=== PATIENT | male | born 1950 | race Two or more races ===

== ENCOUNTER 2018-08-23 22:38 | Inpatient (IN) | payer MEDICARE, OTHER ==
[~2018-08-23] VITALS: Ht 175.3 cm; Wt 817.4 kg
[~2018-08-23 22:38] MED LIST: CARB200T PO; HYDR12.54 PO; LEVE1000 PO; LEVE750T4 PO; LISI-604 PO; PRAS10TA6 PO; ZONI100C34 PO
[2018-08-23] MEDS ORDERED: FAMOTIDINE 20MG/2ML VIAL IV STA (23:15)
[2018-08-23] MEDS ORDERED: ONDANSETRON HCL 4MG/2ML INJ IV STA (23:15)
[2018-08-23 23:39] LABS: BASOPHILS % 0.5 % (0.0-2.0); EOSINOPHILS % 3.6 % (0.0-5.0); HEMATOCRIT. 44.3 % (42.0-52.0); HEMOGLOBIN. 14.7 g/dL (14.0-18.0); LYMPHOCYTES % 14.8 % (20.0-50.0); MEAN CORPUSCULAR HEMOGLOBIN 31.9 pg (28.0-32.0); MEAN CORPUSCULAR VOLUME 96.4 fL (80.0-94.0); MEAN PLATELET VOLUME 8.4 fl (7.4-10.4); MONOCYTES % 10.8 % (2.0-8.0); NEUTROPHILS % 70.3 % (40.0-76.0); PLATELET 163 x1000/uL (130-400); RED CELL DISTRIBUTION WIDTH 13.5 % (11.6-14.6)
[2018-08-23 23:46] LABS: CHLORIDE 107 mEq/L (98-107)
[2018-08-23 23:55] LABS: CARBAMAZEPINE 11.4 ug/mL (4-12)
[2018-08-24 01:00] LABS: CLARITY URINE CLEAR (CLEAR); COLOR URINE YELLOW (YELLOW); KETONES URINE NEGATIVE (NEGATIVE); LEUKOCYTE ESTERASE URINE NEGATIVE (NEGATIVE); NITRITE URINE NEGATIVE (NEGATIVE); OCCULT BLOOD URINE NEGATIVE (NEGATIVE); PH URINE 6.5 (4.5-8.0); PROTEIN URINE NEGATIVE (NEGATIVE); SPECIFIC GRAVITY URINE 1.015 (1.005-1.030)
[2018-08-24] MEDS ORDERED: DEXT 5%/0.45% NACL KCL 20MEQ/L 1,000 ML IV ONE (01:23)
[2018-08-24] MEDS ORDERED: MORPHINE SULFATE 4 MG/ML CPJ (NOT FOR IM USE) IV ONE (01:30)
[2018-08-24] MEDS ORDERED: PIPERACILLIN/TAZ 3.375G PREMIX 50 ML IV ONE (02:15)
[2018-08-24 08:44] VITALS: BP 140/84
[2018-08-24] MEDS ORDERED: ONDANSETRON HCL 4MG/2ML INJ IV PRN (10:00)
[2018-08-24] MEDS ORDERED: ACETAMINOPHEN 325MG TABLET PO PRN (10:00)
[2018-08-24 10:30] VITALS: BP 140/84
[2018-08-24 12:00] VITALS: BP 119/54
[2018-08-24] MEDS ORDERED: ZONI100C34 MT ×3 (13:28→13:31)
[2018-08-24] MEDS ORDERED: ASPI-986 MT (13:35)
[2018-08-24] MEDS ORDERED: METO25TA6 MT (13:35)
[2018-08-24] MEDS ORDERED: RAMI10CA19 MT (13:35)
[2018-08-24] MEDS ORDERED: ATOR20TA65 MT (13:35)
[2018-08-24] MEDS: ENOXAPARIN 40MG/0.4ML SYR SUBCUT SCH (13:48)
[2018-08-24] MEDS: PIPERACILLIN/TAZ 3.375G PREMIX 50 ML IV SCH ×2 (13:48→18:38)
[2018-08-24] MEDS: SODIUM CHLORIDE 0.9% 1,000 ML IV SCH (13:54)
[2018-08-24 16:00] VITALS: BP 118/67
[2018-08-24] MEDS ORDERED: IPRATROPIUM/ALBUTEROL 0.5-3(2.5)MG/3ML NEB HHN SCH ×2 (16:00)
[2018-08-24] MEDS ORDERED: LEVETIRACETAM 1500 MG PO SCH ×2 (17:00)
[2018-08-24] MEDS ORDERED: RAMIPRIL MT SCH (17:00)
[2018-08-24] MEDS ORDERED: MEDICATION NOT ON FORMULARY EA (Metoprolol Tartrate 1 TAB) MT SCH (17:00)
[2018-08-24 20:00] VITALS: BP 119/72
[2018-08-24] MEDS: LEVETIRACETAM 500MG TABLET PO SCH (20:50)
[2018-08-24] MEDS: METOPROLOL TARTRATE 50MG TABLET PO SCH (20:51)
[2018-08-24] MEDS: LISINOPRIL 40MG TABLET PO SCH (20:52)
[2018-08-24] MEDS ORDERED: ATORVASTATIN CALCIUM 20MG TABLET PO SCH (21:00)
[2018-08-24] MEDS ORDERED: CARBAMAZEPINE 200MG TABLET PO SCH (21:00)
[2018-08-24] MEDS ORDERED: ZONISAMIDE 100MG CAPSULE PO SCH (21:00)
[2018-08-24] MEDS ORDERED: ZONISAMIDE MT SCH (21:00)
[2018-08-25] VITALS: BP 121/70
[2018-08-25] MEDS: SODIUM CHLORIDE 0.9% 1,000 ML IV SCH ×2 (00:01→12:32)
[2018-08-25] MEDS: PIPERACILLIN/TAZ 3.375G PREMIX 50 ML IV SCH ×3 (00:01→12:31)
[2018-08-25 04:00] VITALS: BP 96/60
[2018-08-25 06:30] LABS: HEMATOCRIT. 40.8 % (42.0-52.0); HEMOGLOBIN. 13.3 g/dL (14.0-18.0); MEAN CORPUSCULAR HEMOGLOBIN 31.3 pg (28.0-32.0); MEAN CORPUSCULAR VOLUME 95.8 fL (80.0-94.0); MEAN PLATELET VOLUME 8.8 fl (7.4-10.4); PLATELET 149 x1000/uL (130-400); RED BLOOD CELL COUNT 4.26 mill/uL (4.7-6.1); RED CELL DISTRIBUTION WIDTH 13.6 % (11.6-14.6)
[2018-08-25 07:17] LABS: CHLORIDE 110 mEq/L (98-107)
[2018-08-25 08:00] VITALS: BP 126/79
[2018-08-25] MEDS: LEVETIRACETAM 500MG TABLET PO SCH (08:22)
[2018-08-25] MEDS: LISINOPRIL 40MG TABLET PO SCH (08:23)
[2018-08-25] MEDS: METOPROLOL TARTRATE 50MG TABLET PO SCH (08:23)
[2018-08-25] MEDS ORDERED: ZONISAMIDE MT SCH (09:00)
[2018-08-25] MEDS ORDERED: ASPIRIN 81MG TABLET PO SCH (09:00)
[2018-08-25] MEDS ORDERED: CARBAMAZEPINE 200MG TABLET PO SCH ×2 (09:00→12:00)
[2018-08-25] MEDS ORDERED: ZONISAMIDE 100MG CAPSULE PO SCH (09:00)
[2018-08-25] MEDS ORDERED: MEDICATION NOT ON FORMULARY EA (Aspirin 1 TAB) MT SCH (09:00)
[2018-08-25] MEDS: ENOXAPARIN 40MG/0.4ML SYR SUBCUT SCH (10:30)
[2018-08-25 10:31] LABS: PLATELET ESTIMATE NORMAL
[2018-08-25 12:00] VITALS: BP 110/68
[2018-08-25 16:00] VITALS: BP 124/65
[2018-08-25 17:55] VITALS: BP 124/65
== END 2018-08-25 18:30 | disposition home or self-care (01) | DRG 392 ==
LOC: ER 22:38 → 5WST 08-24 02:05 → EDBEDREQTM 08-24 02:22 → EDBEDREQ 08-24 02:22 → ENRESERV 08-24 07:11
PROVIDERS: ADMIT Internal Medicine; ATTEND Internal Medicine
DX: K52.9 Noninfective gastroenteritis and colitis, unspecified (principal); K56.699 Other intestinal obstruction unspecified as to partial versus complete obstruction; K57.30 Diverticulosis of large intestine without perforation or abscess without bleeding; G40.909 Epilepsy, unspecified, not intractable, without status epilepticus; I10 Essential (primary) hypertension; N28.1 Cyst of kidney, acquired; Z90.49 Acquired absence of other specified parts of digestive tract; Z79.899 Other long term (current) drug therapy
CPT/HCPCS: 36415; 71045; 74018; 74176; 80048; 80156; 83605; 83880; 84484; 87015; 87045; 87427; 87449; 87493; 89055; 93005; 96365; 96375; 99285; J1650; J2270; J2405; J2543; J3490; J7030; J7620

== ENCOUNTER 2024-08-03 20:42 | Emergency (ER) | payer MEDICARE, OTHER ==
[~2024-08-03] VITALS: Ht 172.7 cm; Wt 73.0 kg
[~2024-08-03 20:42] MED LIST changes: +ALFU10TA46 PO; +AMLO-138 PO; +ASPI-986 MT; +ATOR20TA65 MT; +BRIM.2 EACHEYE; +CARB200C7 PO; -CARB200T PO; +CARB200T6 PO; +DULO60CA64 PO; +FERR325T23 PO; +FINA5TAB11 PO; +FLUT16SP15 NS; +FOLI-43 PO; -HYDR12.54 PO; +LATA2.5D14 EACHEYE; -LEVE1000 PO; +LEVO5TAB13 PO; -LISI-604 PO; -PRAS10TA6 PO; +SOLI5TAB7 PO; +ZONI100C34 MT; -ZONI100C34 PO
[2024-08-03 20:55] VITALS: TEMP 37.1; O2SAT 98
[2024-08-03 21:42] LABS: CLARITY URINE CLEAR (CLEAR); COLOR URINE YELLOW (YELLOW); GLUCOSE URINE NEGATIVE (NEGATIVE); KETONES URINE NEGATIVE (NEGATIVE); LEUKOCYTE ESTERASE URINE NEGATIVE (NEGATIVE); NITRITE URINE NEGATIVE (NEGATIVE); OCCULT BLOOD URINE NEGATIVE (NEGATIVE); PH URINE 5.5 (4.5-8.0); PROTEIN URINE TRACE (NEGATIVE); SPECIFIC GRAVITY URINE 1.018 (1.005-1.030)
[2024-08-03 22:04] LABS: BACTERIA URINE NONE SEEN; RBC URINE 0-2 /hpf (0-2); SQUAMOUS EPITHELIAL CELL URINE RARE /lpf (RARE/1+); WBC URINE NONE SEEN /hpf (0-2)
[2024-08-03 22:23] LABS: HEMATOCRIT. 39.1 % (42.0-52.0); HEMOGLOBIN. 12.7 g/dL (14.0-18.0); MEAN CORPUSCULAR HEMOGLOBIN 31.2 pg (28.0-32.0); MEAN CORPUSCULAR HGB CONC 32.4 g/dL (31.0-37.0); MEAN CORPUSCULAR VOLUME 96.3 fL (80.0-94.0); MEAN PLATELET VOLUME 8.7 fl (7.4-10.4); PLATELET 175 x1000/uL (130-400); RED BLOOD CELL COUNT 4.07 mill/uL (4.7-6.1); RED CELL DISTRIBUTION WIDTH 13.2 % (11.6-14.6); WHITE BLOOD COUNT 5.3 x1000/uL (4.5-11.0)
[2024-08-03 22:27] LABS: DIFFERENTIAL COMMENT 1
[2024-08-03 22:34] LABS: CHLORIDE 108 mEq/L (98-107); POTASSIUM 3.8 mEq/L (3.5-5.1); SODIUM 140 mEq/L (136-145)
[2024-08-03 22:36] LABS: CALCIUM 9.5 mg/dL (8.7-10.4); CARBON DIOXIDE 22 mEq/L (21-32)
[2024-08-03 22:41] LABS: GLUCOSE 120 mg/dL (70-105); TROPONIN I HIGH SENSITIVITY 5 ng/L (3.0-53); UREA NITROGEN BLOOD 11 mg/dL (9-23)
[2024-08-03 22:43] LABS: ALANINE AMINOTRANSFERASE 16 IU/L (10-49); ALBUMIN 4.3 g/dL (3.2-4.8); ASPARTATE AMINOTRANSFERASE 20 IU/L (<34); BILIRUBIN DIRECT 0.1 mg/dL (<=3.0)
[2024-08-03 22:44] LABS: BILIRUBIN TOTAL 0.4 mg/dL (0.1-1.0); PROTEIN TOTAL 7.2 g/dL (6.0-8.3)
[2024-08-03 22:45] LABS: PLATELET ESTIMATE NORMAL
[2024-08-04 00:51] VITALS: BP 153/69; PULSE 87; RESP 16; O2SAT 98
== END 2024-08-04 00:55 | disposition home or self-care (01) ==
LOC: ER 20:42
DX: K56.7 Ileus, unspecified (principal); G40.909 Epilepsy, unspecified, not intractable, without status epilepticus; I11.9 Hypertensive heart disease without heart failure; Z71.3 Dietary counseling and surveillance; Z79.82 Long term (current) use of aspirin; Z79.899 Other long term (current) drug therapy
CPT/HCPCS: 36415; 74176; 80048; 80076; 81003; 84484; 85025; 93005; 99284; 99285